=== PATIENT | female | born 1955 | race Caucasian/White ===

== ENCOUNTER 2016-11-26 11:24 | Emergency (ER) | payer MEDICAID ==
[2016-11-26 11:24] VITALS: BMI 39.5
[2016-11-26 11:32] VITALS: TEMP 97.9
[2016-11-26] MEDS ORDERED: Morphine 4 mg/ml ISec IVP STA (11:44)
[2016-11-26] MEDS ORDERED: diaZEpam 10 mg/2 ml Inj IVP ONE (11:45)
--- NOTE | 2016-11-26 11:56 | ED PDOC ---
Arrival/HPI - General Historian: Patient, Family - General Chief Complaint: Back Pain Time Seen by Provider: 11/26/16 11:43 - History of Present Illness Narrative History of Present Illness (Text): 11/26/16 11:45 61yo female with PMHx of hypertension, hypothyroid, RA, chronic back pain biba for worsening lower back pain, left sided temporal/facial headache, left sided facial pain, nausea, vomiting. The daughter by the bedside notes chronic history of back pain that became increasingly worse over the past few weeks. States she saw her Orthopedist doctor few days ago and LS surgery was recommended. She had MRI recently that showed herniated disc. She came to ED today because she was complaining of severe pain and headache with associated vomiting. States she refused to take her analgesic today. Her pain is worse with movement. she is on Mobic, Ibuprofen and Tramadol at home. Admits to left sided nasal congestion. Denies urinary/fecal incontinence, focal weakness, trauma, abdominal pain, visual changes, urinary symptoms, chest pain, dizziness , any other complaint. (Kevin Moralez) Past Medical History - Provider Review Nursing Documentation Reviewed: Yes - Infectious Disease Hx of Infectious Diseases: None - Cardiac Hx Cardiac Disorders: Yes Hx Hypertension: Yes - Endocrine/Metabolic Hx Hypothyroidism: Yes - Hematological/Oncological Hx Blood Disorders: Yes Hx Cancer: Yes (thyroid) - Musculoskeletal/Rheumatological Hx Arthritis: Yes Hx Back Pain: Yes Hx Falls: No Hx Osteoarthritis: Yes Hx Spinal Stenosis: Yes - Genitourinary/Gynecological Hx Incontinence: Yes - Psychiatric Hx Substance Use: No - Surgical History Hx Thyroidectomy: Yes Family/Social History - Physician Review Nursing Documentation Reviewed: Yes Family/Social History: Unknown Family HX Smoking Status: Never Smoked Hx Alcohol Use: No Hx Substance Use: No Allergies/Home Meds Allergies/Adverse Reactions: Allergies No Known Allergies Allergy (Verified 11/26/16 11:41) Home Medications: Home Meds Medication Instructions Recorded Confirmed Levothyroxine Sodium [Synthroid] 200 mcg PO DAILY 10/14/15 11/26/16 Atenolol [Tenormin] 50 mg PO DAILY 08/31/16 11/26/16 Atorvastatin [Lipitor] 10 mg PO DIN 08/31/16 11/26/16 Bumetanide [Bumex] 2 mg PO DAILY 08/31/16 11/26/16 Methotrexate 0 mg PO DAILY 08/31/16 11/26/16 Celecoxib 200 mg PO BID 11/26/16 11/26/16 Folic Acid 1 mg PO DAILY 11/26/16 11/26/16 Gabapentin [Neurontin] 300 mg PO TID 11/26/16 11/26/16 Ibuprofen [Motrin Tab] 1 tab PO TID PRN 11/26/16 11/26/16 Lipase/Protease/Amylase [Creon Dr 1 cap PO TID 11/26/16 11/26/16 24,000 Units Capsule] Meloxicam [Mobic] 15 mg PO DAILY 11/26/16 11/26/16 Pantoprazole [Protonix] 40 mg PO DAILY 11/26/16 11/26/16 Voltaren 1 appl TID 11/26/16 11/26/16 tiZANidine [Zanaflex] 4 mg PO DAILY 11/26/16 11/26/16 traMADol [Ultram] 50 mg PO DAILY 11/26/16 11/26/16 Review of Systems - Physician Review All systems were reviewed & negative as marked: Yes - Review of Systems Constitutional: Normal Eyes: Normal ENT: Normal Respiratory: Normal Cardiovascular: Normal Gastrointestinal: Nausea, Vomiting. absent: Abdominal Pain, Constipation, Diarrhea Genitourinary Female: Normal Musculoskeletal: Back Pain Skin: Normal Neurological: Headache. absent: Dizziness, Focal Weakness Endocrine: Normal Hemo/Lymphatic: Normal Psychiatric: Normal Physical Exam Vital Signs Reviewed: Yes Temperature: Afebrile Blood Pressure: Hypertensive Pulse: Regular Respiratory Rate: Normal Appearance: Positive for: Well-Appearing, Non-Toxic, Comfortable Pain Distress: None Mental Status: Positive for: Alert and Oriented X 3 - Systems Exam Head: Present: Atraumatic, Normocephalic Pupils: Present: PERRL Extroacular Muscles: Present: EOMI Conjunctiva: Present: Normal Mouth: Present: Moist Mucous Membranes Nose (Internal): Present: Normal Inspection Neck: Present: Normal Range of Motion Respiratory/Chest: Present: Clear to Auscultation, Good Air Exchange. No: Respiratory Distress, Accessory Muscle Use Cardiovascular: Present: Regular Rate and Rhythm, Normal S1, S2. No: Murmurs Abdomen: Present: Normal Bowel Sounds. No: Tenderness, Distention, Peritoneal Signs Back: Present: Midline Tenderness, Paraspinal Tenderness, Pain with Leg Raise ( Left leg) Upper Extremity: Present: Normal Inspection. No: Cyanosis, Edema Lower Extremity: Present: Normal Inspection. No: Edema Neurological: Present: GCS=15, CN II-XII Intact, Speech Normal, Motor Func Grossly Intact, Normal Sensory Function, Normal Cerebellar Funct, Norm Deep Tendon Reflexes, Memory Normal, Other (No focal neurological deficit) Skin: Present: Warm, Dry, Normal Color. No: Rashes Psychiatric: Present: Alert, Oriented x 3, Normal Insight, Normal Concentration Vital Signs Temp Pulse Resp BP Pulse Ox 11/26/16 13:54 73 16 149/70 95 11/26/16 11:31 97.9 F 71 18 157/106 H 98 Medical Decision Making ED Course and Treatment: I was available for consultation during PA evaluation. The chart was reviewed by me, and I agree with disposition. The documented history was done by the physician cotton sampler. The documented physical exam was done by the physician cotton sampler. The documented procedures were done by the physician cotton sampler. (Rm Walker) 11/26/16 13:35 Pt present for stated history. On re evaluation she appear comfortable. sleeping comfortably. states her pain improved in ED. She was ambulatory in ED. Lab was unremarkable. She have nitrate in the UA, without WBC. On further questioning the daughter states pt complained of pelvic pressure. She will be DC home with macrobid. Head CT was negative for acute finding All result was DW both pt and the daughter. She will be DC home with and advised to continue with her analgesic and muscle at home as was instructed by her orthopedist. Referred to her ortho. TRT ED for any new or worsening symptoms. (Kevin Moralez) - Lab Interpretations Lab Results: 11/26/16 12:17 11/26/16 12:17 Lab Results 11/26/16 13:15: Urine Color Yellow, Urine Appearance Clear, Urine pH 6.0, Ur Specific [place] 1.015, Urine Protein Negative, Urine Glucose (UA) Negative, Urine Ketones Negative, Urine Blood Negative, Urine Nitrate Positive H, Urine Bilirubin Negative, Urine Urobilinogen 0.2, Ur Leukocyte Esterase Negative, Urine RBC Negative, Urine WBC 0 - 2, Ur Epithelial Cells 0 - 2, Urine Bacteria Large 11/26/16 12:17: Sodium 139, Potassium 4.2, Chloride 102, Carbon Dioxide 27, Anion Gap 14, BUN 17, Creatinine 0.6, Est GFR ( Amer) > 60, Est GFR (Non- Af Amer) > 60, Random Glucose 121 H, Calcium 9.5, Total Bilirubin 0.5, AST 30, ALT 40, Alkaline Phosphatase 46, Total Protein 7.2, Albumin 4.2, Globulin 3.0, Albumin/Globulin Ratio 1.4 11/26/16 12:17: WBC 5.9, RBC 4.80, Hgb 13.9, Hct 42.0, MCV 87.5, MCH 29.0, MCHC 33.1, RDW 14.5, Plt Count 235, MPV 9.8, Gran % 65.7, Lymph % (Auto) 26.7, [place] % (Auto) 7.2 H, Eos % (Auto) 0.2 L, Baso % (Auto) 0.2, Gran # 3.85, Lymph # 1.6 , [place] # 0.4, Eos # 0.0, Baso # 0.01, ESR 9 - RAD Interpretation Radiology Orders: 11/26/16 11:44 HEAD W/O CONTRAST [CT] Stat - Medication Orders Current Medication Orders: Sodium Chloride (Sodium Chloride 0.9%) 1,000 mls @ 250 mls/hr IV .Q4H ONE Stop: 11/26/16 15:56 Last Admin: 11/26/16 12:07 Dose: 250 mls/hr Nitrofurantoin Macrocrystals (Macrobid) 100 mg PO ONCE STA Stop: 11/26/16 13:56 Discontinued Medications Diazepam (Valium) 5 mg IVP ONCE ONE PRN Reason: Protocol Stop: 11/26/16 11:46 Last Admin: 11/26/16 12:06 Dose: 5 mg Metoclopramide HCl (Reglan) 10 mg IVP STAT STA Stop: 11/26/16 11:46 Last Admin: 11/26/16 12:06 Dose: 10 mg Morphine Sulfate (Morphine) 4 mg IVP STAT STA Stop: 11/26/16 11:45 Last Admin: 11/26/16 12:06 Dose: 4 mg Disposition/Present on Arrival - Present on Arrival Any Indicators Present on Arrival: No History of DVT/PE: No History of Uncontrolled Diabetes: No Urinary Catheter: No History of Decub. Ulcer: No History Surgical Site Infection Following: None - Disposition Have Diagnosis and Disposition been Completed?: Yes Disposition Time: 13:50 Patient Plan: Discharge - Disposition Diagnosis: Chronic back pain, Headache, Cystitis Disposition: HOME/ ROUTINE Patient Problems: Current Active Problems Problem Status Onset Chronic back pain Acute Headache Acute Condition: IMPROVED Discharge Instructions (ExitCare): Acute Headache (ED), Chronic Back Pain (ED) Additional Instructions: Follow up with your Orthopedist Return to ED for any new symptoms Prescriptions: Nitrofurantoin Macrocrystals [Macrobid] 100 mg PO BID #14 cap Referrals: PCP,NO [Primary Care Provider] - Follow up with primary
[2016-11-26] MEDS ORDERED: Sodium Chloride 0.9% 1,000 ML IV ONE (11:57)
[2016-11-26 12:17] LABS: ADD MANUAL DIFF? NO
[2016-11-26 12:22] LABS: BASO # 0.01 K/mm3 (0.0-2.0); BASO % 0.2 % (0.0-3.0); EOS % 0.2 % (1.5-5.0); GRAN # 3.85 (1.4-6.5); GRAN % 65.7 % (50.0-68.0); LYMPH # 1.6 (1.2-3.4); LYMPH % 26.7 % (22.0-35.0); MEAN CELL VOLUME 87.5 fL (80.0-105.0); MEAN CORPUSCULAR HGB CONC 33.1 g/dl (31.0-37.0); MEAN PLATELET VOLUME 9.8 fl (7.0-11.0); MONO # 0.4 (0.1-0.6); MONO % 7.2 % (1.0-6.0); PLATELET COUNT 235 10^3/uL (120.0-450.0); RED CELL DISTRIBUTION WIDTH 14.5 % (11.5-14.5); WHITE BLOOD COUNT 5.9 10^3/ul (4.5-11.0)
[2016-11-26 12:32] LABS: ALB/GLOB RATIO 1.4 (1.1-1.8); ALKALINE PHOSPHATASE 46 U/L (38-133); ALT/SGPT 40 U/L (7-56); AST/SGOT 30 U/L (15-39); BILIRUBIN,TOTAL 0.5 mg/dL (0.2-1.3); BLOOD UREA NITROGEN 17 mg/dL (7-21); CALCIUM 9.5 mg/dL (8.4-10.5); CARBON DIOXIDE 27 mmol/L (21-33); CHLORIDE 102 mmol/L (98-107); GFR AFRICAN-AMERICAN > 60; GLUCOSE,RANDOM 121 mg/dL (70-110); POTASSIUM 4.2 mmol/L (3.6-5.0); SODIUM 139 mmol/L (132-148); TOTAL PROTEIN 7.2 g/dL (5.8-8.3)
--- NOTE | 2016-11-26 12:56 | CT ---
PROCEDURE: CT HEAD WITHOUT CONTRAST. HISTORY: headache COMPARISON: Noncontrast head CT performed 12/07/15 TECHNIQUE: Axial computed tomography images were obtained through the head/brain without intravenous contrast. Radiation dose: Total exam DLP = 677.45 mGy-cm. This CT exam was performed using one or more of the following dose reduction techniques: Automated exposure control, adjustment of the mA and/or kV according to patient size, and/or use of iterative reconstruction technique. FINDINGS: Streak artifact obscures evaluation of the skullbase. HEMORRHAGE: No intracranial hemorrhage. BRAIN: No mass effect or edema. Intracranial atherosclerotic calcifications. The husain-white matter differentiation appears grossly intact. Please note that MRI with diffusion imaging is more sensitive in the detection of acute ischemic event. VENTRICLES: No hydrocephalus. CALVARIUM: Unremarkable. PARANASAL SINUSES: No air-fluid levels. MASTOID AIR CELLS: No mastoid effusion. OTHER FINDINGS: None. IMPRESSION: No acute intracranial pathology identified.
[2016-11-26 13:23] LABS: URINE BILIRUBIN NEGATIVE (NEGATIVE); URINE BLOOD NEGATIVE (NEGATIVE); URINE GLUCOSE (UA) NEGATIVE (NEGATIVE); URINE KETONE NEGATIVE (NEGATIVE); URINE LEUKOCYTE ESTERASE NEGATIVE Leu/uL (NEGATIVE); URINE PROTEIN NEGATIVE mg/dL (<30 mg/dL); URINE UROBILINOGEN 0.2 E.U./dL (<1 E.U./dL)
[2016-11-26 13:25] LABS: URINE APPEARANCE CLEAR (CLEAR); URINE COLOR YELLOW (YELLOW)
[2016-11-26 13:28] LABS: ERYTHROCYTE SEDIMENTATION RATE 9 mm/hr (0.0-20.0)
[2016-11-26 13:45] LABS: URINE BACTERIA LARGE (NEG); URINE EPITHELIAL CELLS 0 - 2 /hpf (0-5); URINE RBC NEGATIVE /hpf (0-2); URINE WBC 0 - 2 /hpf (0-6)
[2016-11-26 13:55] VITALS: BP 149/70; PULSE 73; RESP 16; O2SAT 95
== END 2016-11-26 14:26 | disposition home or self-care (01) ==
LOC: ED 11:24
DX: N30.90 Cystitis, unspecified without hematuria (principal); R51 Headache; M54.9 Dorsalgia, unspecified; G89.29 Other chronic pain; I10 Essential (primary) hypertension
CPT/HCPCS: 70450; 80053; 81001; 85025; 85651; 87086; 96374; 96375; 99284; J2270; J2765; J3360; J7040

== ENCOUNTER 2017-09-21 18:55 | Emergency (ER) | payer MEDICAID ==
[2017-09-21 19:24] VITALS: BMI 39.6
[2017-09-21 19:26] VITALS: RESP 18; TEMP 98.2
[2017-09-21] MEDS ORDERED: Oxycodone/Acetaminophen 5/325 mg Tab PO STA (19:54)
--- NOTE | 2017-09-21 19:57 | ED PDOC ---
Arrival/HPI - General Chief Complaint: Back Pain Time Seen by Provider: 09/21/17 19:38 Historian: Patient, Family (caden) - History of Present Illness Narrative History of Present Illness (Text): 09/21/17 19:50 This 62 yo female with pmh chronic back pain, presents to this ED c/o left lower back pain x 2 weeks. Patient stated pain worsen early today. Patient stated Gabapentin is not reliving her pain. Denies trauma, fever, sob, cp, skin rash, recent travel, GI/ incontinence, saddle anesthesias, urinary retention, or sick contact. Time/Duration: Other (see hpi) Symptom Onset: Gradual Symptom Course: Worsening Quality: Aching Context: Home Past Medical History - Provider Review Nursing Documentation Reviewed: Yes - Infectious Disease Hx of Infectious Diseases: None - Cardiac Hx Cardiac Disorders: Yes Hx Hypertension: Yes - Pulmonary Hx Respiratory Disorders: No - Neurological Hx Neurological Disorder: No - HEENT Hx HEENT Disorder: No - Renal Hx Renal Disorder: No - Endocrine/Metabolic Hx Hypothyroidism: Yes - Hematological/Oncological Hx Blood Disorders: Yes Hx Cancer: Yes (thyroid) - Integumentary Hx Dermatological Disorder: No - Musculoskeletal/Rheumatological Hx Arthritis: Yes Hx Back Pain: Yes Hx Falls: No Hx Osteoarthritis: Yes Hx Spinal Stenosis: Yes - Gastrointestinal Hx Gastrointestinal Disorders: No - Genitourinary/Gynecological Hx Incontinence: Yes - Psychiatric Hx Psychophysiologic Disorder: No Hx Substance Use: No - Surgical History Hx Thyroidectomy: Yes Family/Social History - Physician Review Nursing Documentation Reviewed: Yes Family/Social History: Other (noncontributory) Smoking Status: Never Smoked Hx Alcohol Use: No Hx Substance Use: No Allergies/Home Meds Allergies/Adverse Reactions: Allergies No Known Allergies Allergy (Verified 09/21/17 19:24) Home Medications: Home Meds Medication Instructions Recorded Confirmed Atenolol [Tenormin] 50 mg PO DAILY 08/31/16 09/21/17 Methotrexate 0 mg PO DAILY 08/31/16 09/21/17 Folic Acid 1 mg PO DAILY 11/26/16 09/21/17 Gabapentin [Neurontin] 600 mg PO BID 11/26/16 09/21/17 Ibuprofen [Motrin Tab] 1 tab PO TID PRN 11/26/16 09/21/17 Meloxicam [Mobic] 15 mg PO DAILY 11/26/16 09/21/17 Pantoprazole [Protonix] 40 mg PO DAILY 11/26/16 09/21/17 tiZANidine [Zanaflex] 4 mg PO DAILY 11/26/16 09/21/17 Apremilast [Otezla] 30 mg PO BID 09/21/17 09/21/17 Biotin 10,000 mcg PO DAILY 09/21/17 09/21/17 Cyanocobalamin [Vitamin B12 100 1,000 mcg PO DAILY 09/21/17 09/21/17 mcg Tab] Ergocalciferol (Vitamin D2) 50,000 unit PO QWK 09/21/17 09/21/17 [Vitamin D2] Famotidine [Pepcid] 40 mg PO BID 09/21/17 09/21/17 Omega3,5,6,7,9 No.1/[place] Oil 1 each PO DAILY 09/21/17 09/21/17 [Complete [place] Softgel] Omeprazole 40 mg PO DAILY 09/21/17 09/21/17 Ondansetron HCl [Zofran] 4 mg PO DAILY 09/21/17 09/21/17 Review of Systems - Review of Systems Constitutional: Normal. absent: Fatigue, Weight Change, Fevers Eyes: Normal ENT: Normal Respiratory: Normal. absent: SOB, Cough Cardiovascular: Normal. absent: Chest Pain Gastrointestinal: Normal. absent: Abdominal Pain, Nausea, Vomiting Genitourinary Female: Normal. absent: Dysuria, Frequency, Hematuria, Vaginal Bleeding, Vaginal Discharge Musculoskeletal: Back Pain Skin: Normal. absent: Rash, Pruritis Neurological: Normal Endocrine: Normal Hemo/Lymphatic: Normal Psychiatric: Normal Physical Exam Vital Signs Temp Pulse Resp BP Pulse Ox 09/21/17 18:55 98.2 F 69 18 120/70 97 Temperature: Afebrile Blood Pressure: Normal Pulse: Regular Respiratory Rate: Normal Appearance: Positive for: Well-Appearing, Non-Toxic, Comfortable Pain Distress: None Mental Status: Positive for: Alert and Oriented X 3 - Systems Exam Head: Present: Atraumatic, Normocephalic Pupils: Present: PERRL Extroacular Muscles: Present: EOMI Conjunctiva: Present: Normal Mouth: Present: Moist Mucous Membranes Neck: Present: Normal Range of Motion. No: Meningeal Signs, MIDLINE TENDERNESS Respiratory/Chest: Present: Clear to Auscultation, Good Air Exchange. No: Respiratory Distress, Accessory Muscle Use, Wheezes, Retracting, Rhonchi Cardiovascular: Present: Regular Rate and Rhythm, Normal S1, S2. No: Murmurs Abdomen: No: Tenderness Back: Present: Normal Inspection, Paraspinal Tenderness (mild left paravertebral tenderness. No vertebral point tenderness. No vertebral step off). No: CVA Tenderness, Midline Tenderness, Pain with Leg Raise Upper Extremity: Present: Normal Inspection, Normal ROM Lower Extremity: Present: Normal Inspection, NORMAL PULSES, Normal ROM, Neurovascularly Intact, Capillary Refill < 2 s. No: Edema, CALF TENDERNESS, Quintin's Sign, Tenderness, Swelling, Erythema, Temperature Abnormalties Neurological: Present: GCS=15, CN II-XII Intact, Speech Normal, Motor Func Grossly Intact, Normal Sensory Function, Normal Cerebellar Funct Skin: Present: Warm, Dry, Normal Color. No: Rashes Psychiatric: Present: Alert, Oriented x 3, Normal Insight, Normal Concentration Medical Decision Making ED Course and Treatment: 09/21/17 19:59 Patient refused x-rays, labs, and UA. Patient stated her pain is chronic and she only needs pain control. Denies other somatic complain. 09/21/17 21:25 Re-evaluation. Patient feels better. Discussed results and plan with patient who expresses understanding. All questions answered and there is agreement with the plan to discharge home with instructions. Patient stable for discharge. Return if symptoms persist or worsen. Patient has a normal gait. Re-evaluation Time: 21:26 Reassessment Condition: Re-examined, Improved - Medication Orders Current Medication Orders: Discontinued Medications Ketorolac Tromethamine (Toradol) 15 mg IM STAT STA Stop: 09/21/17 19:54 Last Admin: 09/21/17 20:23 Dose: 15 mg MAR Pain Assessment Document 09/21/17 20:23 GMD (Rec: 09/21/17 20:23 GMD [id number]) Pain Reassessment Is this a pain reassessment? No IM Administration Charges Document 09/21/17 20:23 GMD (Rec: 09/21/17 20:23 GMD [id number]) Charges for Administration # of IM Administrations 1 Ondansetron HCl (Zofran Odt) 8 mg PO STAT STA Stop: 09/21/17 19:54 Last Admin: 09/21/17 20:23 Dose: 8 mg Oxycodone/Acetaminophen (Percocet 5/325 Mg Tab) 1 tab PO STAT STA Stop: 09/21/17 19:55 Last Admin: 09/21/17 20:23 Dose: 1 tab MAR Pain Assessment Document 09/21/17 20:23 GMD (Rec: 09/21/17 20:23 GMD [id number]) Pain Reassessment Is this a pain reassessment? No Presence of Pain Presence of Pain Yes Disposition/Present on Arrival - Present on Arrival Any Indicators Present on Arrival: No History of DVT/PE: No History of Uncontrolled Diabetes: No Urinary Catheter: No History of Decub. Ulcer: No History Surgical Site Infection Following: None - Disposition Have Diagnosis and Disposition been Completed?: Yes Diagnosis: Exacerbation of chronic back pain Disposition: HOME/ ROUTINE Disposition Time: 21:27 Patient Plan: Discharge Condition: GOOD Discharge Instructions (ExitCare): Chronic Pain (DC) Additional Instructions: Call pain management doctor office for follow up visit in 1-2 days. Continue with home Motrin and tizanidine for pain as needed. Return to emergency if pain worsen Prescriptions: oxyCODONE/Acetaminophen [Percocet 5/325 mg Tab] 1 ea PO Q4H PRN #6 tab PRN Reason: Pain, Severe (8-10) Referrals: [place] Tamez, [Primary Care Provider] - Follow up with primary Forms: REPP (Kazakh)
[2017-09-21 22:10] VITALS: BP 128/70; PULSE 70; O2SAT 100
[2017-09-22] MEDS ORDERED: Bacitracin 500 Units/gm Oint Foilpak UD ONE (06:12)
== END 2017-09-21 22:10 | disposition home or self-care (01) ==
LOC: ED 18:55
DX: G89.29 Other chronic pain (principal); M54.5 Low back pain; I10 Essential (primary) hypertension; E03.9 Hypothyroidism, unspecified
CPT/HCPCS: 96372; 99282; J1885